=== PATIENT | female | born 2000 | race Caucasian/White ===

== ENCOUNTER 2023-11-15 00:50 | Inpatient (IN) | payer OTHER ==
[2023-11-15 02:14] LABS: BASO % 0.6 % (0-2.0); HEMATOCRIT 36.1 % (32.4-45.2); HEMOGLOBIN 12.4 GM/dL (10.7-15.3); MCH 31.2 pg (25.7-33.7); MCHC 34.2 g/dl (32.0-36.0); MEAN CELL VOLUME 91.3 fl (80-96); MEAN PLT VOLUME 9.2 fl (7.5-11.1); MONO % 6.8 % (3.8-10.2); NEUT % 77.6 % (42.8-82.8); PLATELET COUNT 275 10^3/uL (134-434); RBC 3.96 M/mm3 (3.60-5.2); RDW 13.2 % (11.6-15.6); WHITE BLOOD COUNT 10.8 K/mm3 (4.0-10.0)
[2023-11-15] MEDS: ELECTROLYTE-148 SOLN 1,000 ML IV SCH (02:15)
[2023-11-15 02:20] LABS: INR 0.9 (0.83-1.09); PROTHROMBIN TIME (PATIENT) 10.5 SEC (9.7-13.0)
[2023-11-15 02:23] LABS: ACTIVATED PTT 28.9 SECONDS (25.2-36.5)
[2023-11-15 02:30] LABS: POTASSIUM 4.3 mmol/L (3.5-5.1)
[2023-11-15 02:32] LABS: CALCIUM 9.2 mg/dL (8.5-10.1)
[2023-11-15] MEDS: FENTANYL/BUPIVACAINE/NS/PF - PCEA - 50 ML DISP.SYRIN EP SCH (02:50)
[2023-11-15] MEDS ORDERED: FENTANYL/BUPIVACAINE/NS/PF - PCEA - 50 ML DISP.SYRIN EP ONE (02:54)
[2023-11-15] MEDS ORDERED: NALOXONE HCL 0.4 MG/ML VIAL IVPUSH PRN (03:02)
[2023-11-15 04:20] VITALS: BMI 26.4
[2023-11-15] MEDS ORDERED: FENTANYL CITRATE/PF 50 MCG/ML VIAL ONE (04:48)
[2023-11-15] MEDS ORDERED: morphine SULFATE/PF 1 MG/2 ML (2cc Syringe - QUVA) ONE (04:48)
[2023-11-15] MEDS ORDERED: ONDANSETRON 4 MG/2 ML VIAL ONE (05:14)
[2023-11-15] MEDS ORDERED: ceFAZolin SODIUM 1 GM VIAL ONE (05:21)
[2023-11-15] MEDS ORDERED: OXYTOCIN 10 UNITS/ML VIAL ONE (05:35)
[2023-11-15] MEDS: OXYTOCIN 20 UNITS in 0.9% NS 20 UNIT/1,000 ML INFUS.BAG IV SCH (06:00)
[2023-11-15 06:30] LABS: SYPHILIS W/ RPR CONF NON-REACTIVE (NONREACTIVE)
[2023-11-15 06:30] LABS: CORD BASE EXCESS -3.7 mmol/L (0-2); CORD HCO3 25.5 mmHg (20-29); CORD pH 7.225 (7.14-7.44)
[2023-11-15 06:59] LABS: HIV INTERPRETATION NEGATIVE (NEGATIVE)
[2023-11-15] MEDS ORDERED: LABETALOL HCL 200 MG TABLET (FP) ONE (08:14)
[2023-11-15] MEDS: LABETALOL HCL 200 MG TABLET (FP) PO SCH (08:15)
[2023-11-15 10:20] LABS: POTASSIUM 4.2 mmol/L (3.5-5.1)
[2023-11-15 10:23] LABS: ALBUMIN 2.3 g/dl (3.4-5.0); BLOOD UREA NITROGEN 13.7 mg/dL (7-18)
[2023-11-15 10:29] LABS: BILIRUBIN,TOTAL 0.4 mg/dL (0.2-1); CALCIUM 8.2 mg/dL (8.5-10.1); TOT PROT 5.8 g/dl (6.4-8.2)
[2023-11-15] MEDS: IBUPROFEN 800 MG/8 ML IJ IVPB PRN (18:13)
[2023-11-15] MEDS: ACETAMINOPHEN 325 MG TABLET (FP) PO PRN (22:20)
[2023-11-16] MEDS: oxyCODONE HCL 5 MG TABLET PO PRN (00:59)
[2023-11-16] MEDS: SIMETHICONE 80 MG TAB.CHEW (FP) PO PRN (01:00)
[2023-11-16] MEDS ORDERED: BISACODYL 10 MG SUPP.RECT RC PRN (04:49)
[2023-11-16] MEDS: IBUPROFEN 600 MG TABLET (FP) PO PRN (06:07)
[2023-11-16 08:53] LABS: BASO % 0.3 % (0-2.0); EOS % 0.2 % (0-4.5); HEMATOCRIT 28.8 % (32.4-45.2); HEMOGLOBIN 9.8 GM/dL (10.7-15.3); LYMPH % 15.2 % (8-40); MCH 31.3 pg (25.7-33.7); MCHC 34.1 g/dl (32.0-36.0); MEAN CELL VOLUME 91.8 fl (80-96); MEAN PLT VOLUME 8.2 fl (7.5-11.1); MONO % 6.9 % (3.8-10.2); NEUT % 77.4 % (42.8-82.8); PLATELET COUNT 181 10^3/uL (134-434); RBC 3.13 M/mm3 (3.60-5.2); RDW 13.1 % (11.6-15.6)
[2023-11-17] MEDS: LABETALOL HCL 200 MG TABLET (FP) PO SCH (09:49)
[2023-11-17 19:04] VITALS: RESP 18
[2023-11-18 07:35] LABS: BASO % 0.5 % (0-2.0); EOS % 2.4 % (0-4.5); HEMATOCRIT 32.1 % (32.4-45.2); HEMOGLOBIN 10.8 GM/dL (10.7-15.3); LYMPH % 30.6 % (8-40); MCHC 33.8 g/dl (32.0-36.0); MEAN CELL VOLUME 91.8 fl (80-96); MONO % 6.5 % (3.8-10.2); PLATELET COUNT 261 10^3/uL (134-434); RDW 12.8 % (11.6-15.6); WHITE BLOOD COUNT 7.3 K/mm3 (4.0-10.0)
[2023-11-18 09:52] VITALS: TEMP 98.1
[2023-11-18 11:23] VITALS: BP 115/70; PULSE 75
== END 2023-11-18 13:50 | disposition home or self-care (01) | DRG 540 ==
LOC: JLDR 00:50 → J3W 08:35
PROVIDERS: ADMIT Student in an Organized Health Care Education/Training Program; ATTEND Student in an Organized Health Care Education/Training Program
PROC: 10D00Z1 Extraction of Products of Conception, Low, Open Approach (ICD-10-PCS; principal; 2023-11-15)
DX: O36.5930 Maternal care for other known or suspected poor fetal growth, third trimester, not applicable or unspecified (principal); O76 Abnormality in fetal heart rate and rhythm complicating labor and delivery; O13.4 Gestational [pregnancy-induced] hypertension without significant proteinuria, complicating childbirth; O77.0 Labor and delivery complicated by meconium in amniotic fluid; Z3A.39 39 weeks gestation of pregnancy; Z37.0 Single live birth
CPT/HCPCS: 36415; 36600; 80048; 80053; 82803; 85025; 85610; 85730; 86780; 86850; 86900; 86901; 87389; 88307-TC; 93005; 93010